=== PATIENT | female | born 2000 | race American Indian/Alaskan Native ===

== ENCOUNTER 2021-02-26 01:50 | Inpatient (IN) | payer MEDICAID ==
[2021-02-26] MEDS ORDERED: OXYTOCIN 10 UNIT/1 ML INJ IM PRN (02:44)
[2021-02-26] MEDS ORDERED: ACETAMINOPHEN 325 MG TAB PO PRN (02:44)
[2021-02-26] MEDS ORDERED: MINERAL OIL 30 ML ORAL LIQD PO PRN (02:44)
[2021-02-26] MEDS ORDERED: LIDOCAINE (2%) 20 MG/1 ML VIAL 20 ML MDV INFILTRATI ONE (02:44)
[2021-02-26] MEDS ORDERED: ePHEDrine SULFATE 50 MG/1 ML INJ IV PRN ×2 (02:44→14:00)
[2021-02-26] MEDS ORDERED: METHYLERGONOVINE MALEATE 0.2 MG/ML VIAL IM PRN (02:44)
[2021-02-26] MEDS ORDERED: LOPERAMIDE 2 MG CAP PO PRN (02:44)
[2021-02-26] MEDS ORDERED: CARBOPROST TROMETHAMINE 250 MCG/1 ML INJ IM PRN (02:44)
[2021-02-26] MEDS ORDERED: AMPICILLIN/NS 2 GM/100 ML 2 GM/100 ML BAG IV ONE (02:44)
[2021-02-26] MEDS ORDERED: miSOPROStol 200 MCG TAB PR PRN (02:44)
[2021-02-26] MEDS ORDERED: TERBUTALINE 1 MG/1 ML INJ SUB-Q PRN (02:44)
[2021-02-26] MEDS ORDERED: fentaNYL 100 MCG/2 ML INJ IV PRN (02:44)
[2021-02-26] MEDS ORDERED: BUTORPHANOL 2 MG/1 ML INJ IV PRN ×2 (02:44→11:00)
[2021-02-26] MEDS: LACTATED RINGERS 1,000 ML IV SCH ×3 (03:29→13:27)
[2021-02-26 03:34] LABS: Hematocrit 36.3 % (30.3-42.9); Hemoglobin 12.5 gm/dl (10.1-14.3); Mean Corpuscular HGB Conc 34 % (30-34); Mean Corpuscular Volume 91 fl (79-97); Platelet Count 222 K/mm3 (140-440); Red Cell Distribution Width 14.1 % (13.2-15.2)
[2021-02-26 04:09] LABS: Hepatitis C Virus Antibody Non-Reactive (NonReactive)
--- NOTE | 2021-02-26 04:13 | History and Physical Report ---
History of Present Illness Date of examination: 02/26/21 Date of admission: 02/26/21 02:44 Chief complaint: Contractions and leaking of water History of present illness: 20 year old presents with complaint of contractions and leaking of water since midnight. Patient receives care at [facility] but records are not available. Patient states her EDC is 03/02/21. Patient denies complications during this . labs are not available; these were drawn upon admission. 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 denies: smoking, alcohol abuse, prescription drug abuse, IV drug use - Obstetrical History Expected Date of Delivery: 03/02/21 Actual Gestation: 39 Week(s) 3 Day(s) : 1 Para: 0 Hx # Term Pregnancies: 0 Number of Pregnancies: 0 Spontaneous Abortions: 0 Induced : 0 Number of Living Children: 0 Medications and Allergies Allergies Allergy/AdvReac Type Severity Reaction Status Date / Time No Known Allergies Allergy Verified 02/26/21 02:50 Home Medications Medication Instructions Recorded Confirmed Last Taken Type One Daily Tablet 1 tab PO DAILY 02/26/21 02/26/21 02/25/21 21:00 History Active Meds: Active Medications Acetaminophen (Acetaminophen 325 Mg Tab) 650 mg PO Q4H PRN PRN Reason: Pain, Mild (1-3) Butorphanol Tartrate (Butorphanol 2 Mg/1 Ml Inj) 1 mg IV Q2H PRN PRN Reason: Pain, Moderate(4-6) LABOR PAIN Carboprost Tromethamine (Carboprost Tromethamine 250 Mcg/1 Ml Inj) 250 mcg IM ONCE PRN PRN Reason: Uterine Bleeding Ephedrine Sulfate (Ephedrine Sulfate 50 Mg/1 Ml Inj) 10 mg IV Q2M PRN PRN Reason: Hypotension Fentanyl (Fentanyl 100 Mcg/2 Ml Inj) 100 mcg IV Q2H PRN PRN Reason: Pain,Severe (7-10) LABOR PAIN Lactated Ringer's (Lactated Ringers) 1,000 mls @ 125 mls/hr IV DIRECT DIEGO Last Admin: 02/26/21 03:29 Dose: 125 mls/hr Documented by: Oxytocin/Sodium Chloride (Pitocin/Ns 30 Unit/500ml) 30 units in 500 mls @ 40 mls/hr IV TITR [facility]; Protocol Ampicillin Sodium (Ampicillin/Ns 2 Gm/100 Ml) 2 gm in 100 mls @ 100 mls/hr IV ONCE ONE; Protocol Stop: 02/26/21 03:43 Last Admin: 02/26/21 03:28 Dose: 100 mls/hr Documented by: Ampicillin Sodium (Ampicillin/Ns 1 Gm/50 Ml) 1 gm in 50 mls @ 100 mls/hr IV Q4H [facility]; Protocol Loperamide HCl (Loperamide 2 Mg Cap) 2 mg PO ONCE PRN PRN Reason: give with Hemabate Methylergonovine Maleate (Methylergonovine Maleate 0.2 Mg/Ml Vial) 0.2 mg IM ONCE PRN PRN Reason: Uterine Bleeding Mineral Oil (Mineral Oil 30 Ml Oral Liqd) 30 ml PO QHS PRN PRN Reason: Constipation Misoprostol (Misoprostol 200 Mcg Tab) 800 mcg [place] ONCE PRN PRN Reason: Uterine Bleeding Oxytocin (Oxytocin 10 Unit/1 Ml Inj) 10 unit IM ONCE PRN PRN Reason: Uterine Bleeding Terbutaline Sulfate (Terbutaline 1 Mg/1 Ml Inj) 0.25 mg SUB-Q ONCE PRN PRN Reason: Hyperstimulation/Hypertonicity Review of Systems All systems: negative (contractions and leaking of water from vagina) - Vital Signs Vital signs: Vital Signs Pulse BP 74 116/85 02/26/21 02:06 02/26/21 02:06 Temp Pulse Resp BP Pulse Ox 98.5 F 87 18 108/80 98 02/26/21 02:08 02/26/21 03:31 02/26/21 02:08 02/26/21 02:15 02/26/21 03:31 - Physical Exam Abdomen: Positive: normal appearance, soft. Negative: distention, tenderness, guarding, rigidity Genitourinary (Female): Positive: normal external genitalia, normal perenium. Negative: perineal/vulvar lesions Vagina: Positive: normal moisture Uterus: Positive: enlarged. Negative: tender Anus/Rectum: Positive: normal perianal skin Extremities: Negative: tenderness - Obstetrical FHR: category 1 Uterine Contraction Monitor Mode: External Cervical Dilatation: 4 Cervical Effacement Percentage: 80 (forebag present) station: -1 Uterine Contraction Pattern: Regular Uterine Contraction Intensity: Moderate Results Result Diagrams: 02/26/21 03:15 All other labs normal. Assessment and Plan A: at 39 weeks, 3 days gestation. Labor. SROM. GBS unknown. No records available. P: Admit. Continuous EFM. GBS prophylaxis. Request records. labs were drawn and US ordered due to no records.
--- NOTE | 2021-02-26 05:19 | Ultrasound Report ---
ULTRASOUND OBSTETRIC INDICATION / CLINICAL INFORMATION: EGA/EDC, EFW, location of placenta. Clinical Gestational Age (GA) in weeks, days: 39, 3 TECHNIQUE: Transabdominal. COMPARISON: None available. FINDINGS: Single intrauterine . Biparietal Diameter = 9.1 cm = 37, 0 weeks, days Head Circumference = 32.7 cm = 37, 1 weeks, days Abdominal Circumference = 34.2 cm = 38, 0 weeks, days Femur Length = 7.5 cm = 38, 1 weeks, days Average Ultrasound Age (AUA) = 37, 4 weeks, days Heart Rate: 143 beats per minute. Estimated Weight in grams (if calculated): 3318 Estimated Weight Growth Percentile (if calculated): 33% Position: cephalic. Cervix: Not visualized. Length in cm (if measured): Not measured Placenta: anterior and grade 3 Amniotic Fluid Volume: Subjectively normal. Amniotic Fluid Index (MAR) in cm (if calculated): Not calculated. Maternal Adnexa: Not visualized IMPRESSION: 1. Single, living intrauterine with estimated sonographic age of 37, 4 weeks, days. 2. No acute abnormality. Signer Name: Dane Puente MD Signed: 02/26/2021 5:15 AM Workstation Name: [id number]
[2021-02-26] MEDS: AMPICILLIN/NS 1 GM/50 ML 1 GM/50 ML BAG IV SCH ×2 (09:19→14:02)
--- NOTE | 2021-02-26 10:46 | Progress Note ---
Assessment and Plan A: IUP @ 39 3/7 Weeks Category I Tracing Early Labor GBS Unknown P: AROM of hindbag Start Pitocin Augmentation Continue GBS Prophylaxis Subjective - Subjective Date of service: 02/26/21 Patient reports: movement normal, contractions Objective - Vital Signs Vital Signs: Vital Signs - 12hr 02/26/21 02/26/21 02/26/21 02:06 02:07 02:08 Temperature 98.5 F Pulse Rate 74 75 81 Respiratory 18 Rate Blood Pressure 116/85 Blood Pressure 108/80 [Right] O2 Sat by Pulse 100 99 Oximetry 02/26/21 02/26/21 02/26/21 02:12 02:15 02:17 Temperature Pulse Rate 81 83 95 H Respiratory Rate Blood Pressure 108/80 Blood Pressure [Right] O2 Sat by Pulse 98 99 Oximetry 02/26/21 02/26/21 02/26/21 02:22 02:27 02:32 Temperature Pulse Rate 84 76 80 Respiratory Rate Blood Pressure Blood Pressure [Right] O2 Sat by Pulse 98 98 98 Oximetry 02/26/21 02/26/21 02/26/21 02:37 02:42 02:56 Temperature Pulse Rate 90 89 85 Respiratory Rate Blood Pressure Blood Pressure [Right] O2 Sat by Pulse 99 99 99 Oximetry 02/26/21 02/26/21 02/26/21 03:01 03:06 03:11 Temperature Pulse Rate 83 89 84 Respiratory Rate Blood Pressure Blood Pressure [Right] O2 Sat by Pulse 99 99 98 Oximetry 02/26/21 02/26/21 02/26/21 03:16 03:21 03:26 Temperature Pulse Rate 84 81 85 Respiratory Rate Blood Pressure Blood Pressure [Right] O2 Sat by Pulse 98 98 99 Oximetry 02/26/21 02/26/21 02/26/21 03:28 03:31 03:36 Temperature Pulse Rate 86 87 75 Respiratory Rate Blood Pressure Blood Pressure [Right] O2 Sat by Pulse 94 98 99 Oximetry 02/26/21 02/26/21 02/26/21 03:41 03:46 03:51 Temperature Pulse Rate 77 85 81 Respiratory Rate Blood Pressure Blood Pressure [Right] O2 Sat by Pulse 99 98 98 Oximetry 02/26/21 02/26/21 02/26/21 03:53 03:56 04:01 Temperature Pulse Rate 80 75 81 Respiratory Rate Blood Pressure 103/63 Blood Pressure [Right] O2 Sat by Pulse 98 99 Oximetry 02/26/21 02/26/21 02/26/21 04:06 04:11 04:16 Temperature Pulse Rate 76 79 79 Respiratory Rate Blood Pressure Blood Pressure [Right] O2 Sat by Pulse 98 99 99 Oximetry 02/26/21 02/26/21 02/26/21 04:21 04:26 04:31 Temperature Pulse Rate 80 69 71 Respiratory Rate Blood Pressure Blood Pressure [Right] O2 Sat by Pulse 99 99 99 Oximetry 02/26/21 02/26/21 02/26/21 04:36 04:41 04:46 Temperature Pulse Rate 71 69 68 Respiratory Rate Blood Pressure Blood Pressure [Right] O2 Sat by Pulse 98 99 98 Oximetry 02/26/21 02/26/21 02/26/21 04:51 04:56 05:01 Temperature Pulse Rate 70 70 74 Respiratory Rate Blood Pressure Blood Pressure [Right] O2 Sat by Pulse 98 98 98 Oximetry 02/26/21 02/26/21 02/26/21 05:06 05:11 05:16 Temperature Pulse Rate 68 70 72 Respiratory Rate Blood Pressure Blood Pressure [Right] O2 Sat by Pulse 98 98 99 Oximetry 02/26/21 02/26/21 02/26/21 05:21 05:26 05:31 Temperature Pulse Rate 81 79 71 Respiratory Rate Blood Pressure Blood Pressure [Right] O2 Sat by Pulse 98 98 100 Oximetry 02/26/21 02/26/21 02/26/21 05:36 05:41 05:46 Temperature Pulse Rate 77 73 82 Respiratory Rate Blood Pressure Blood Pressure [Right] O2 Sat by Pulse 99 99 99 Oximetry 02/26/21 02/26/21 02/26/21 05:51 05:56 06:01 Temperature Pulse Rate 69 75 74 Respiratory Rate Blood Pressure Blood Pressure [Right] O2 Sat by Pulse 99 99 99 Oximetry 02/26/21 02/26/21 02/26/21 06:04 06:06 06:11 Temperature Pulse Rate 84 87 79 Respiratory Rate Blood Pressure Blood Pressure [Right] O2 Sat by Pulse 94 97 99 Oximetry 02/26/21 02/26/21 02/26/21 06:16 06:21 06:26 Temperature Pulse Rate 87 69 74 Respiratory Rate Blood Pressure Blood Pressure [Right] O2 Sat by Pulse 99 98 98 Oximetry 02/26/21 02/26/21 02/26/21 06:31 06:36 06:41 Temperature Pulse Rate 87 72 74 Respiratory Rate Blood Pressure Blood Pressure [Right] O2 Sat by Pulse 98 97 99 Oximetry 02/26/21 02/26/21 02/26/21 06:46 06:51 06:56 Temperature Pulse Rate 75 75 74 Respiratory Rate Blood Pressure Blood Pressure [Right] O2 Sat by Pulse 98 97 97 Oximetry 02/26/21 02/26/21 02/26/21 07:01 07:06 07:08 Temperature Pulse Rate 86 105 H 93 H Respiratory Rate Blood Pressure Blood Pressure [Right] O2 Sat by Pulse 100 98 91 Oximetry 02/26/21 02/26/21 02/26/21 07:11 07:12 07:14 Temperature 98.8 F Pulse Rate 93 H 86 102 H Respiratory 16 Rate Blood Pressure 112/72 Blood Pressure 112/72 [Right] O2 Sat by Pulse 100 99 Oximetry 02/26/21 02/26/21 02/26/21 07:16 07:21 07:26 Temperature Pulse Rate 83 78 88 Respiratory Rate Blood Pressure Blood Pressure [Right] O2 Sat by Pulse 99 98 98 Oximetry 02/26/21 02/26/21 02/26/21 07:31 07:36 07:37 Temperature Pulse Rate 79 81 91 H Respiratory Rate Blood Pressure Blood Pressure [Right] O2 Sat by Pulse 98 99 92 Oximetry 02/26/21 02/26/21 02/26/21 07:41 07:43 07:46 Temperature Pulse Rate 74 96 H 72 Respiratory Rate Blood Pressure Blood Pressure [Right] O2 Sat by Pulse 98 93 99 Oximetry 02/26/21 02/26/21 02/26/21 07:48 07:51 07:56 Temperature Pulse Rate 73 72 67 Respiratory Rate Blood Pressure 101/66 Blood Pressure [Right] O2 Sat by Pulse 98 97 Oximetry 02/26/21 02/26/21 02/26/21 08:01 08:06 08:11 Temperature Pulse Rate 68 64 68 Respiratory Rate Blood Pressure Blood Pressure [Right] O2 Sat by Pulse 97 97 97 Oximetry 02/26/21 02/26/21 02/26/21 08:16 08:18 08:21 Temperature Pulse Rate 66 64 67 Respiratory Rate Blood Pressure 94/60 Blood Pressure [Right] O2 Sat by Pulse 97 97 Oximetry 02/26/21 02/26/21 02/26/21 08:26 08:31 08:36 Temperature Pulse Rate 85 85 84 Respiratory Rate Blood Pressure Blood Pressure [Right] O2 Sat by Pulse 99 97 98 Oximetry 02/26/21 02/26/21 02/26/21 08:41 08:46 08:48 Temperature Pulse Rate 91 H 89 82 Respiratory Rate Blood Pressure 106/67 Blood Pressure [Right] O2 Sat by Pulse 99 98 Oximetry 02/26/21 02/26/21 02/26/21 08:51 08:56 09:01 Temperature Pulse Rate 82 70 84 Respiratory Rate Blood Pressure Blood Pressure [Right] O2 Sat by Pulse 98 99 98 Oximetry 02/26/21 02/26/21 02/26/21 09:06 09:18 09:23 Temperature Pulse Rate 72 49 L 82 Respiratory Rate Blood Pressure Blood Pressure [Right] O2 Sat by Pulse 98 90 100 Oximetry 02/26/21 02/26/21 02/26/21 09:28 09:33 09:38 Temperature Pulse Rate 97 H 88 77 Respiratory Rate Blood Pressure Blood Pressure [Right] O2 Sat by Pulse 100 99 100 Oximetry 02/26/21 02/26/21 02/26/21 09:43 09:48 09:53 Temperature Pulse Rate 79 79 95 H Respiratory Rate Blood Pressure Blood Pressure [Right] O2 Sat by Pulse 100 100 99 Oximetry 02/26/21 02/26/21 02/26/21 09:58 10:03 10:08 Temperature Pulse Rate 71 68 66 Respiratory Rate Blood Pressure Blood Pressure [Right] O2 Sat by Pulse 99 98 98 Oximetry 02/26/21 02/26/21 02/26/21 10:13 10:18 10:23 Temperature Pulse Rate 69 69 67 Respiratory Rate Blood Pressure Blood Pressure [Right] O2 Sat by Pulse 98 98 98 Oximetry 02/26/21 02/26/21 02/26/21 10:28 10:33 10:38 Temperature Pulse Rate 70 124 H 78 Respiratory Rate Blood Pressure Blood Pressure [Right] O2 Sat by Pulse 97 98 87 Oximetry - Exam Breasts: normal Cardiovascular: Regular rate Lungs: Clear to auscultation, Normal air movement Abdomen: Present: normal appearance, soft, normal bowel sounds Uterus: Present: normal, firm, fundal height above umbilicus FHR: category 1 Uterine Contraction Monitor Mode: External Cervical Dilatation: 4 (AROM of hingbag @1035; small amount of clear fluid. Moderate amount of bloody show prior to AROM) Cervical Effacement Percentage: 80 station: -2 Uterine Contraction Pattern: Irregular Uterine Tone Measurement Phase: Resting Uterine Contraction Intensity: Moderate Extremities: normal - Labs Labs: Laboratory Results - last 24 hr 02/26/21 02/26/21 02/26/21 03:15 03:15 03:15 WBC 8.3 RBC 4.00 Hgb 12.5 Hct 36.3 MCV 91 MCH 31 MCHC 34 RDW 14.1 Plt Count 222 Syphilis IgG Antibody Nonreactive Hep Bs Antigen Hepatitis C Antibody Non-reactive HIV 1&2 Antibody Rapid HIV P24 Antigen Rubella IgG Antibody Immune Blood Type A POSITIVE Antibody Screen Negative 02/26/21 02/26/21 03:15 03:15 WBC RBC Hgb Hct MCV MCH MCHC RDW Plt Count Syphilis IgG Antibody Hep Bs Antigen Nonreactive Hepatitis C Antibody HIV 1&2 Antibody Rapid Non react HIV P24 Antigen Non react Rubella IgG Antibody Blood Type Antibody Screen
[2021-02-26] MEDS: OXYTOCIN DRIP 30 UNITS/500 ML BAG IV SCH ×2 (10:51→17:43)
--- NOTE | 2021-02-26 13:51 | Anesthesia Consultation ---
Anesthesia Consult and Med Hx Date of service: 02/26/21 - Airway Anesthetic Teeth Evaluation: Good ROM Head & Neck: Adequate Mental/Hyoid Distance: Adequate Mallampati Class: Class I Intubation Access Assessment: Good - Pulmonary Exam CTA: Yes - Cardiac Exam Cardiac Exam: RRR - Pre-Operative Health Status ASA Pre-Surgery Classification: ASA2 Proposed Anesthetic Plan: Epidural - Pulmonary Hx Smoking: No Hx Asthma: No COPD: No Hx Pneumonia: No Hx Sleep Apnea: No - Cardiovascular System Hx Hypertension: No Hx Heart Attack/AMI: No Hx Angina: No - Gastrointestinal Hx Gastroesophageal Reflux Disease: No - Endocrine Hx Renal Disease: No Hx End Stage Renal Disease: No Hx Liver Disease: No Hx Insulin Dependent Diabetes: No Hx Non-Insulin Dependent Diabetes: No - Other Systems Hx Alcohol Use: No
--- NOTE | 2021-02-26 13:53 | Progress Note ---
Labor Epidural - Labor Epidural Start Time: 13:31 Stop Time: 13:45 Performed by:: GEOFFREY MOSS Procedure: Patient is requesting epidural for labor and pain. H&P, labs were reviewed. Patient IDed, H&P reviewed, all questions and concerns were answered, and consent was signed. Timeout was performed at bedside. Patient in sitting position. Sterile prep and drape was performed. 3ml of 1% lidocaine skin wheal at L[3]- L [4]. 17-gauge Tuohy epidural needle was advanced to loss of resistance with air technique 7cm. Negative CSF negative blood. Epidural catheter advanced to [12] centimeters. [negative] Aspiration [negative] test dose. Sterile dressing applied. Patient tolerated procedure.
[2021-02-26] MEDS ORDERED: fentaNYL-BUPIV 2 MCG/ML-0.125% 200 MCG/100 ML BAG EPIDURAL SCH (14:00)
[2021-02-26] MEDS ORDERED: LACTATED RINGERS 1,000 ML IV SCH (14:00)
[2021-02-26] MEDS ORDERED: ONDANSETRON 4 MG/2 ML INJ IV PRN (14:00)
[2021-02-26] MEDS ORDERED: diphenhydrAMINE 50 MG/ML VIAL IV PRN (14:00)
[2021-02-26] MEDS ORDERED: LACTATED RINGERS 250 ML IV SOLN IV ONE (14:00)
[2021-02-26] MEDS ORDERED: NALOXONE 2 MG/2 ML INJ IV PRN (14:00)
[2021-02-26] MEDS ORDERED: NalbUPHINE 10 MG/1 ML INJ IV PRN (14:00)
[2021-02-26] MEDS ORDERED: HYDROcodone/ACETAMINOPHEN 5-325 MG TAB PO PRN (18:26)
[2021-02-26] MEDS ORDERED: WITCH HAZEL/ GLYCERIN PAD TP PRN (18:26)
[2021-02-26] MEDS ORDERED: LANOLIN/ZINC/DIMETHICONE (LANSINOH) 7 GM TP PRN (18:26)
--- NOTE | 2021-02-26 18:34 | Procedure Note ---
OB Delivery Note - Delivery Date of Delivery: 02/26/21 (1716) Surgeon: GÉNESIS PURI Estimated blood loss: other (275) - Vaginal Delivery presentation: vertex Delivery position: OA Intrapartum events: none Delivery induction: none Delivery augmentation: rupture of membranes, pitocin Delivery monitor: external FHT, external uterine Route of delivery: Delivery placenta: spontaneous Delivery cord: 3 umbilical vessels Episiotomy: none Delivery laceration: 1st degree Delivery repair: vicryl Anesthesia: epidural Delivery comments: of a live 6'13 female infant over a 1st degree vaginal laceration under epidural anesthesia with Apgars of 8 and 9 at 1716 on 02/26/2021. Infant directly to maternal abd/chest, skin to skin contact. Spontaneous delivery of placenta complete and intact with [place] side presenting at 1720. Fundus is firm and midline located 4 below the U. Lochia is scant. Delayed cord clamping and cutting; Cord cut by the Father of the Baby. Vaginal laceration repaired with 2-[address]-1. - A at 1 minute: 8 at 5 minutes: 9 Infant Gender: Female (6'13)
[2021-02-27] MEDS: IBUPROFEN 600 MG TAB PO SCH ×4 (00:54→23:00)
[2021-02-27] MEDS: PRENATAL VIT27-FE FUMARATE-FOLIC ACID VIT TAB PO SCH (09:06)
[2021-02-27 09:44] LABS: Hematocrit 31.6 % (30.3-42.9); Hemoglobin 10.9 gm/dl (10.1-14.3)
--- NOTE | 2021-02-27 11:03 | Progress Note ---
Assessment and Plan A: S/P P: Continue routine pp orders Awaiting H&H results D/C home anant if stable Subjective - Subjective Date of service: 02/27/21 Principal diagnosis: s/p Patient reports: appetite normal, voiding normally, pain well controlled, ambulating normally : doing well, nursing well Objective - Vital Signs Latest vital signs: Vital Signs Temp Pulse Resp BP Pulse Ox Pulse Ox 02/27/21 07:52 98 02/27/21 07:27 97.9 F 77 18 109/71 98 02/27/21 06:30 18 02/27/21 05:42 98.6 F 80 20 109/67 100 02/27/21 05:30 18 02/27/21 01:54 18 02/27/21 01:00 98.4 F 86 20 110/72 100 02/27/21 00:54 18 02/26/21 20:18 98.5 F 85 18 115/70 99 02/26/21 20:00 98 02/26/21 18:53 111 H 115/78 02/26/21 18:37 93 H 123/58 02/26/21 18:24 99 H 91 02/26/21 18:23 98 H 96 02/26/21 18:22 105 H 130/67 02/26/21 18:18 98 H 97 02/26/21 18:16 97 H 94 02/26/21 18:13 97 H 99 02/26/21 18:08 92 H 96 02/26/21 18:07 98 H 133/68 02/26/21 18:05 103 H 84 02/26/21 18:03 102 H 96 02/26/21 18:00 104 H 92 02/26/21 17:58 108 H 99 02/26/21 17:53 110 H 98 02/26/21 17:52 111 H 94 02/26/21 17:48 110 H 100 02/26/21 17:43 116 H 100 02/26/21 17:38 112 H 100 02/26/21 17:36 118 H 142/60 83 L 02/26/21 17:33 117 H 82 L 02/26/21 17:28 143 H 99 02/26/21 17:23 124 H 100 02/26/21 17:18 133 H 96 02/26/21 17:13 120 H 100 02/26/21 17:08 137 H 100 02/26/21 17:03 92 H 97 02/26/21 16:58 80 100 02/26/21 16:56 95 H 92 02/26/21 16:53 91 H 98 02/26/21 16:48 95 H 97 02/26/21 16:43 104 H 99 02/26/21 16:38 96 H 100 02/26/21 16:37 85 89 02/26/21 16:33 73 100 02/26/21 16:28 73 100 02/26/21 16:23 89 99 02/26/21 16:18 75 98 02/26/21 16:13 71 97 02/26/21 16:08 66 99 02/26/21 16:07 70 111/72 02/26/21 16:03 65 99 02/26/21 15:58 69 98 02/26/21 15:53 68 97 02/26/21 15:48 67 97 02/26/21 15:43 70 97 02/26/21 15:38 67 98 02/26/21 15:35 89 108/77 02/26/21 15:33 81 98 02/26/21 15:32 75 97/57 02/26/21 15:29 72 96/56 02/26/21 15:28 72 97 02/26/21 15:26 75 93/56 02/26/21 15:23 74 94/57 97 02/26/21 15:20 75 95/58 02/26/21 15:18 73 97 02/26/21 15:17 74 95/56 02/26/21 15:14 70 97/57 02/26/21 15:13 71 97 02/26/21 15:11 71 94/56 02/26/21 15:08 75 91/55 96 02/26/21 15:05 74 94/58 02/26/21 15:03 74 97 02/26/21 15:02 75 92/55 02/26/21 14:59 78 99/60 02/26/21 14:58 79 99 02/26/21 14:56 81 103/65 02/26/21 14:53 75 98/64 96 02/26/21 14:50 79 92/56 02/26/21 14:48 83 98 02/26/21 14:47 82 93/53 02/26/21 14:44 94 H 99/58 02/26/21 14:43 72 99 02/26/21 14:41 66 100/62 02/26/21 14:38 69 98/63 97 02/26/21 14:35 71 97/57 02/26/21 14:33 72 99 02/26/21 14:32 81 108/59 02/26/21 14:29 82 114/56 02/26/21 14:28 81 95 02/26/21 14:26 82 96/55 02/26/21 14:23 78 99/62 100 02/26/21 14:20 68 104/61 02/26/21 14:18 71 95 02/26/21 14:17 75 100/62 02/26/21 14:14 82 103/65 02/26/21 14:13 75 97 02/26/21 14:11 80 103/65 02/26/21 14:08 80 100/62 97 02/26/21 14:05 72 103/63 02/26/21 14:03 74 98 02/26/21 14:02 82 102/63 02/26/21 13:59 75 101/60 02/26/21 13:58 78 98 02/26/21 13:56 86 110/71 02/26/21 13:53 77 106/67 100 02/26/21 13:50 90 112/67 02/26/21 13:48 103 H 100 02/26/21 13:47 93 H 103/67 02/26/21 13:44 88 98/60 02/26/21 13:43 93 H 99 02/26/21 13:41 92 H 99/61 02/26/21 13:38 91 H 98 02/26/21 13:33 111 H 99 02/26/21 13:28 86 99 02/26/21 13:23 108 H 98 02/26/21 13:20 106 H 92 02/26/21 13:18 86 97 02/26/21 13:13 106 H 95 02/26/21 13:08 92 H 98 02/26/21 13:07 111 H 93 02/26/21 13:03 98 H 100 02/26/21 12:58 110 H 99 02/26/21 12:55 77 113/74 02/26/21 12:53 87 99 02/26/21 12:48 103 H 97 02/26/21 12:43 82 98 02/26/21 12:38 77 98 02/26/21 12:33 82 97 02/26/21 12:28 80 113/71 97 02/26/21 12:23 72 97 02/26/21 12:18 76 97 02/26/21 12:13 83 98 02/26/21 12:08 106 H 96 02/26/21 12:03 74 98 02/26/21 11:58 80 98 02/26/21 11:56 77 110/69 02/26/21 11:53 82 97 02/26/21 11:48 86 97 02/26/21 11:43 72 98 02/26/21 11:38 90 98 02/26/21 11:33 83 97 02/26/21 11:28 75 97 02/26/21 11:27 94 H 121/77 02/26/21 11:23 83 98 02/26/21 11:18 79 97 02/26/21 11:13 81 97 02/26/21 11:08 85 96 02/26/21 11:03 91 H 97 Intake and Output 02/26/21 02/27/21 02/27/21 22:59 06:59 14:59 Intake Total 698.650 240 120 Output Total 1200 Balance -501.350 240 120 Intake: IV 498.650 Lactated Ringers 1,000 ml 485.417 @ 125 mls/hr IV DIRECT DIEGO Rx#:[id number] PITOCin/NS 30 UNIT/500ML 13.233 30 units In 500 ml @ 40 mls/hr IV TITR DIEGO Rx#: [id number] Oral 240 120 Intake, Free Water 200 Output: Urine 1200 Uretheral (Mai) 250 Void 950 Other: Total, Intake Amount 240 120 Total, Output Amount 450 # Voids Void 1 - Exam Breasts: Present: normal Abdomen: Present: normal appearance, soft, normal bowel sounds Vulva: both: normal Uterus: Present: normal, firm, fundal height below umbilicus Extremities: Present: normal Incision: Present: normal, intact
--- NOTE | 2021-02-27 11:12 | Discharge Summary ---
Providers - Providers Date of Admission: 02/26/21 02:44 Date of discharge: 02/28/21 Attending physician: MITCHELL FALLON MD Primary care physician: MITCHELL FALLON MD Hospitalization Reason for admission: active labor, IUP at term Delivery: Episiotomy: none Laceration: 1st degree Incision: normal, intact Other procedures: none complications: none Discharge diagnosis: IUP at term delivered baby: female Hospital course: Pt was admitted to [facility] in active labor and had w/o pp complications. See H&p, delivery summary, and pp notes. Condition at discharge: Stable Disposition: 01 HOME / SELF CARE / HOMELESS Plan - Discharge Medications Prescriptions: Ibuprofen [Motrin 600 MG tab] 600 mg PO Q6H PRN #30 tablet PRN Reason: Menstrual Cramps - Provider Discharge Summary Activity: routine, no sex for 6 weeks, no heavy lifting 4 weeks, no strenuous exercise Diet: routine Instructions: routine Additional instructions: [] Smoking cessation referral if applicable(refer to patient education folder for contact #) [] Refer to [facility]'s [facility] Booklet Call your doctor immediately for: * Fever > 100.5 * Heavy vaginal bleeding ( >1 pad per hour) * Severe persistent headache * Shortness of breath * Reddened, hot, painful area to leg or breast * Drainage or odor from incision. * Keep incision clean and dry at all times and follow doctor's instructions regarding bathing/showering - Follow up plan Follow up: MITCHELL FALLON MD [Primary Care Provider] - 6 Weeks
--- NOTE | 2021-02-27 14:56 | Post Anesthesia Evaluation ---
- Post Anesthesia Evaluation Patient Participated: Yes Airway Patent: Yes Stable Respiratory Function: Yes Nausea/Vomiting: No Temp > 96.8F: Yes Pain Manageable: Yes Adequeate Hydration: Yes Anesthesia Complications: No Block Receding Appropriately: Yes Patient on Ventilator: No
[2021-02-28] MEDS: IBUPROFEN 600 MG TAB PO SCH ×2 (05:00→12:39)
[2021-02-28] MEDS: PRENATAL VIT27-FE FUMARATE-FOLIC ACID VIT TAB PO SCH (09:27)
[2021-02-28 15:01] VITALS: BP 106/70
== END 2021-02-28 16:20 | disposition home or self-care (01) | DRG 775 ==
LOC: TRG 01:50 → APU 01:52 → TRG 02:44 → LD 02:44 → OB 20:02
PROVIDERS: ADMIT Obstetrics & Gynecology; ATTEND Obstetrics & Gynecology
PROC: 10E0XZZ Delivery of Products of Conception, External Approach (ICD-10-PCS; principal; 2021-02-26)
PROC: 0HQ9XZZ Repair Perineum Skin, External Approach (ICD-10-PCS; 2021-02-26)
PROC: 3E0R3BZ Introduction of Anesthetic Agent into Spinal Canal, Percutaneous Approach (ICD-10-PCS; 2021-02-26)
PROC: 00HU33Z Insertion of Infusion Device into Spinal Canal, Percutaneous Approach (ICD-10-PCS; 2021-02-26)
DX: O70.0 First degree perineal laceration during delivery (principal); Z3A.39 39 weeks gestation of pregnancy; Z20.822 Contact with and (suspected) exposure to COVID-19; Z37.0 Single live birth
CPT/HCPCS: 36415; 76816; 85014; 85018; 85027; 86592; 86706; 86762; 86803; 86850; 86900; 86901; 87806; G0378; J0290; J0595; J2590; J7120; U0003